=== PATIENT | female | born 1950 | race Caucasian/White ===

== ENCOUNTER 2017-06-29 19:51 | Emergency (ER) | payer OTHER, BC ==
[2017-06-29 20:18] VITALS: TEMP 98.1; BMI 41.8
--- NOTE | 2017-06-29 20:24 | PDOC ---
History of Present Illness - General History Source: Patient, Old Records Exam Limitations: No Limitations - History of Present Illness Initial Comments: 06/29/17 21:14 The patient is a 67 year old female, with a significant past medical history of hypertension, diabetes and hypothyroidism, who presents to the emergency department with right lower extremity redness for the past three weeks. The patient states that she does not specifically remember any insect bites or hitting her right lower extremity on anything in particular. She denies any trauma to the right lower extremity. The patient denies any fever, chills, nausea, vomiting or recent illnesses. The patient denies weakness, numbness or tingling. The patient denies any recent or long travel. Allergies: Meperidine HCl; Sulfa. Past Surgical History: Laminectomy; Left Hip Replacement; Bowel Resection. Social History: Non-smoker. Denies alcohol or drug use. <Starla Murillo - Last Filed: 06/29/17 21:23> <Nalini Sapp - Last Filed: 06/30/17 03:31> - General Chief Complaint: Wound Stated Complaint: RIGHT LEG REDNESS FOR 3 WEEKS Time Seen by Provider: 06/29/17 20:24 Past History <Starla Murillo - Last Filed: 06/29/17 21:23> - Past Medical History Anemia: No Asthma: No Cancer: No Cardiac Disorders: Yes (PVC'S) CVA: No COPD: No CHF: No DVT: No Dementia: No Diabetes: Yes GI Disorders: Yes Disorders: No HTN: Yes Hypercholesterolemia: No Liver Disease: No Seizures: No Thyroid Disease: Yes - Surgical History Abdominal Surgery: Yes (COLON FISTUAL /BOWEL RESECT/TEMP COLSTOMY/REVERSAL COLOSTOMY) Appendectomy: No Cardiac Surgery: No Cholecystectomy: No Lung Surgery: No Neurologic Surgery: Yes (LAMINECTOMY) Orthopedic Surgery: Yes (T L HIP REPLACEMENT) - Suicide/Smoking/Psychosocial Hx Smoking History: Never smoked Have you smoked in the past 12 months: No Number of Cigarettes Smoked Daily: 0 If you are a former smoker, when did you quit?: 1974 Information on smoking cessation initiated: No Hx Alcohol Use: No Drug/Substance Use Hx: No Substance Use Type: None Hx Substance Use Treatment: No <Nalini Sapp - Last Filed: 06/30/17 03:31> - Past Medical History Allergies/Adverse Reactions: Allergies Allergy/AdvReac Type Severity Reaction Status Date / Time meperidine HCl [From Demerol] Allergy Severe SEVERE Verified 06/29/17 19:56 NAUSEA/VOMITING Sulfa (Sulfonamide Allergy UNKNOWN Verified 08/04/13 12:22 Antibiotics) [Sulfa(Sulfonamide Antibiotics)] Home Medications: Ambulatory Orders Atenolol [Tenormin] 50 mg PO DAILY 06/29/17 Diclofenac Sodium [Voltaren -] 50 mg PO DAILY 06/29/17 Levothyroxine [Synthroid -] 112 mcg PO DAILY 06/29/17 Losartan Potassium [Cozaar] 50 mg PO DAILY 06/29/17 Metformin Xr [Glucophage *Xr* -] 750 mg PO BID 06/29/17 Review of Systems - Review of Systems Able to Perform ROS?: Yes Comments:: 06/29/17 20:59 GENERAL/CONSTITUTIONAL: No fever or chills. No weakness. HEAD, EYES, EARS, NOSE AND THROAT: No change in vision. No ear pain or discharge. No sore throat. CARDIOVASCULAR: No chest pain or shortness of breath. RESPIRATORY: No cough, wheezing, or hemoptysis. GASTROINTESTINAL: No nausea, vomiting, diarrhea or constipation. GENITOURINARY: No dysuria, frequency, or change in urination. MUSCULOSKELETAL: No joint or muscle swelling or pain. No neck or back pain. SKIN: +Right lower extremity redness. NEUROLOGIC: No headache, vertigo, loss of consciousness, or change in strength/ sensation. ENDOCRINE: No increased thirst. No abnormal weight change. HEMATOLOGIC/LYMPHATIC: No anemia, easy bleeding, or history of blood clots. ALLERGIC/IMMUNOLOGIC: No hives or skin allergy. <Starla Murillo - Last Filed: 06/29/17 21:23> *Physical Exam - Vital Signs Last Vital Signs Temp Pulse Resp BP Pulse Ox 98.1 F 61 20 194/63 97 06/29/17 19:53 06/29/17 19:53 06/29/17 19:53 06/29/17 19:53 06/29/17 19:53 - Physical Exam Comments: 06/29/17 21:23 GENERAL: Awake, alert, and fully oriented, in no acute distress. HEAD: No signs of trauma. EYES: PERRLA, EOMI, sclera anicteric, conjunctiva clear. ENT: Auricles normal inspection, hearing grossly normal, nares patent, oropharynx clear without exudates. Moist mucosa. NECK: Normal ROM, supple, no lymphadenopathy, JVD, or masses. LUNGS: Breath sounds equal, clear to auscultation bilaterally. No wheezes, and no crackles. HEART: Regular rate and rhythm, normal S1 and S2, no murmurs, rubs or gallops. ABDOMEN: Soft, nontender, normoactive bowel sounds. No guarding, no rebound. No masses. EXTREMITIES: Normal range of motion, no pitting edema. No clubbing or cyanosis. No cords, erythema, or tenderness. NEUROLOGICAL: Cranial nerves II through XII intact. Normal speech, normal gait. SKIN: Right anterior martins, circular area of redness 2 inches in diameter. Lateral aspect of right foot, area of redness. Both areas of redness rachael with pressure. No heat. No tenderness. 2+ pedal pulses intact. Warm, dry, normal turgor. <Starla Murillo - Last Filed: 06/29/17 21:23> - Vital Signs Last Vital Signs Temp Pulse Resp BP Pulse Ox 98.1 F 61 20 194/63 97 06/29/17 19:53 06/29/17 19:53 06/29/17 19:53 06/29/17 19:53 06/29/17 19:53 <Nalini Sapp - Last Filed: 06/30/17 03:31> Medical Decision Making - Medical Decision Making 06/30/17 03:27 Pt's BP was incidentally elevated. She was treated with a dose of diovan and a SLNTG. BP came down. Pt states that she cooked a salty ham and that she had been eating that. As far as patient's rash is concerned, she appears to have vascular condition - she has been referred to vasc. surgery. Pt has no cellulitis and no DVT. <Nalini Sapp - Last Filed: 06/30/17 03:31> *DC/Admit/Observation/Transfer - Attestations Scribe Attestion: 06/29/17 20:55 Documentation prepared by Starla Murillo, acting as medical reviewer for Nalini Sapp MD. <Starla Murillo - Last Filed: 06/29/17 21:23> - Discharge Dispostion Admit: No <Nalini Sapp - Last Filed: 06/30/17 03:31> Diagnosis at time of Disposition: Vascular disorder of lower extremity, HTN (hypertension) - Discharge Dispostion Disposition: HOME Condition at time of disposition: Stable - Referrals - Patient Instructions Printed Discharge Instructions: High Blood Pressure Linked to Inflammation, Peripheral Vascular Ultrasound, High Blood Pressure, DI for Rash Additional Instructions: FOLLOW WITH [facility] FOR ABLATION OF PERIPHERAL VESSELS
[2017-06-29] MEDS ORDERED: VALSARTAN 80 MG TABLET (UD) PO ONE ×2 (22:56→23:33)
[2017-06-29 23:28] VITALS: PULSE 68
[2017-06-30 00:12] VITALS: BP 177/72
== END 2017-06-30 00:11 | disposition home or self-care (01) ==
LOC: FER 19:51
DX: I73.9 Peripheral vascular disease, unspecified (principal); I10 Essential (primary) hypertension; E11.9 Type 2 diabetes mellitus without complications; E03.9 Hypothyroidism, unspecified; Z87.891 Personal history of nicotine dependence
CPT/HCPCS: 36415; 99282-25

== ENCOUNTER 2023-11-11 04:37 | Day surgery (SDC) | payer OTHER, BC ==
[2023-11-10 11:31] VITALS: BMI 39.0
[2023-11-11 10:07] VITALS: RESP 18; TEMP 97.7
[2023-11-11 10:53] VITALS: BP 120/83; PULSE 68
== END 2023-11-11 10:53 | disposition home or self-care (01) ==
LOC: JASU-ENDO 04:37
PROVIDERS: ATTEND Internal Medicine Gastroenterology
PROC: 0DJD8ZZ Inspection of Lower Intestinal Tract, Via Natural or Artificial Opening Endoscopic (ICD-10-PCS; principal; 2023-11-11 09:00)
DX: Z12.11 Encounter for screening for malignant neoplasm of colon (principal); R19.5 Other fecal abnormalities; K57.30 Diverticulosis of large intestine without perforation or abscess without bleeding; I10 Essential (primary) hypertension; E11.9 Type 2 diabetes mellitus without complications; Z79.84 Long term (current) use of oral hypoglycemic drugs; Z79.85 Long-term (current) use of injectable non-insulin antidiabetic drugs; Z98.0 Intestinal bypass and anastomosis status